=== PATIENT | female | born 1945 | race Caucasian/White ===

== ENCOUNTER 2022-05-05 23:00 | Observation (INO) | payer MEDICARE, SELFPAY ==
[2022-05-05 23:01] VITALS: TEMP 37.1; BMI 24.6
--- NOTE | 2022-05-05 23:01 | RAD_ITS ---
STUDY: X-RAY CHEST REASON FOR EXAM: Female, 77 years old. Neuro deficit, acute, stroke suspected TECHNIQUE: AP portable. 11:45 PM. COMPARISON: None. FINDINGS: LUNGS: No consolidation. Small left pleural effusion versus pleural thickening. No pneumothorax. MEDIASTINUM: Aorta tortuous and atherosclerotic. CARDIAC SILHOUETTE: Not enlarged. Sternal wires. BONES AND SOFT TISSUES: No acute abnormalities. RAD/Chest 1 View IMPRESSION: Small left pleural effusion versus pleural thickening. Electronically Signed: Paula Parikh MD at 0:21 EDT ,
--- NOTE | 2022-05-05 23:01 | CT_ITS ---
We are attempting to reach an attending provider to discuss findings. An addendum with communication details will be sent when the communication is complete. STUDY: CT HEAD W/O CONTRAST INJECTION REASON FOR EXAM: Female, 77 years old. Neuro deficit, acute, stroke suspected RADIATION DOSAGE (If Supplied By Facility): CTDIvol = ( ) mGy, DLP = ( ) mGycm TECHNIQUE: Transaxial CT imaging of the brain was performed without administration of intravenous contrast material. Individualized dose optimization techniques were used for this CT. COMPARISON: No relevant priors. FINDINGS: BRAIN: No acute bleed. No edema. Decreased attenuation in the periventricular white matter bilaterally. Kaur-white matter differentiation is maintained. Arterial calcifications. VENTRICLES AND SULCI: The ventricles are not dilated. The sulci are prominent. EXTRA-AXIAL: No hemorrhage, fluid collection, or mass. CALVARIUM / SKULL BASE: Unremarkable. FACE/SINUSES: Unremarkable. SOFT TISSUES: Unremarkable. CT/STROKE Brain/Head without Cont IMPRESSION: No acute abnormality on noncontrast CT. CT angiogram and/or MRI may be helpful to evaluate for acute infarct as clinically indicated. Mild chronic microvascular ischemic disease. Electronically Signed: Paula Parikh MD at 23:19 EDT ,
[2022-05-05 23:04] VITALS: BMI 45.3
[2022-05-05 23:07] VITALS: BMI 20.3
[2022-05-05 23:10] VITALS: BP 170/63; PULSE 68; RESP 18; TEMP 36.2; O2SAT 91
[2022-05-05 23:13] VITALS: O2SAT 92
[2022-05-05 23:24] VITALS: BP 165/66; PULSE 64; RESP 18; O2SAT 97
[2022-05-05 23:31] LABS: Bedside Glucose 129 mg/dL (74-106)
--- NOTE | 2022-05-05 23:35 | EDS_ITS ---
HPI History of Present Illness Chief Complaint: Neuro S/Sx Narrative Narrative: Patient has a history of Busby, she is in town for her sister's , she has not taken her ammonia as she normally has so she can make it through the tomorrow morning at 10:00. She was found unresponsive by her son who called paramedics, per paramedics they thought they may have seen a right-sided facial droop and a stroke team was called. There is no witness to what happened and last known well time was 1 to 2 hours ago. Patient is somewhat lethargic and confused I cannot get a history from her or review of systems. The daughter whom she lives with in [place] is at the bedside now and I am getting most of the history. [facility] Medical History (Updated 05/06/22 @ 00:[address] Jose Doran MD) Diabetes mellitus Nonalcoholic steatohepatitis (BUSBY) Home Medications atorvastatin 40 mg tablet 40 mg PO DAILY 05/05/22 [History Last Taken Unknown] citalopram 20 mg tablet 10 mg PO DAILY 05/05/22 [History Last Taken Unknown] furosemide 40 mg tablet 40 mg PO DAILY 05/05/22 [History Last Taken Unknown] lactulose 20 gram/30 mL oral solution 20 ml PO BID 05/05/22 [History Last Taken Unknown] metformin 500 mg tablet,extended release 24 hr 500 mg PO BID 05/05/22 [History Last Taken Unknown] metoprolol tartrate 25 mg tablet 25 mg PO BID 05/05/22 [History Last Taken Unknown] pantoprazole 40 mg tablet,delayed release 40 mg PO DAILY 05/05/22 [History Last Taken Unknown] prednisone 10 mg tablet 10 mg PO BID 05/05/22 [History Last Taken Unknown] spironolactone 25 mg tablet 25 mg PO DAILY 05/05/22 [History Last Taken Unknown] Allergy/AdvReac Type Severity Reaction Status Date / Time No Known Allergies Allergy Verified 05/05/22 23:21 Social History Smoking Status: Former smoker ROS ROS ED Review of Systems ROS Unobtainable: due to mental condition and due to mental status EXAM Physical Exam Narrative Exam Narrative: Physical exam General: Patient is lethargic she does respond she does follow most commands but she will tell me her name and nothing more. Head: Normocephalic, Atraumatic Eyes: Conjunctiva not pale, I do not appreciate significant scleral icterus ENT: Somewhat dry mucous membranes Neck: Supple, Nontender, No lymphadenopathy Cardiovascular: Regular rate, Regular rhythm Respiratory: No distress, coarse bilateral breath sounds Abdomen: Soft, Nontender, Nondistended Back: Nontender, Normal Inspection. Extremities: Nontender, No edema Skin: Normal color, No rash Neurological: Lethargic but wakes up. No focal deficits. Const Vital Signs: 05/05/22 23:01 05/05/22 23:10 05/05/22 23:13 Temperature 98.8 F 97.2 F L Temperature Source Temporal Temporal Pulse Rate 68 Respiratory Rate 18 Blood Pressure 170/63 H Blood Pressure Mean 98 Pulse Ox 91 92 Oxygen Delivery Method Room Air Nasal Cannula Oxygen Flow Rate (L/min) 2 05/05/22 23:24 Temperature Temperature Source Pulse Rate 64 Respiratory Rate 18 Blood Pressure 165/66 H Blood Pressure Mean 99 Pulse Ox 97 Oxygen Delivery Method Nasal Cannula Oxygen Flow Rate (L/min) 2 MDM MDM MDM Narrative Medical decision making narrative: At this time I do not believe tPA is needed, stroke neurologist agrees, her symptoms are likely secondary to hyperammonemia, there could be an underlying seizure also. There is no focal deficit and oriented H is 3 but it is all secondary to confusion. We will admit her for further stroke work-up. She does have some hyperammonemia which I will treat, however she is recovering relatively quick so she may have had a seizure. Keppra was given IV. We will monitor. Lab Data Labs: Laboratory Results - last 24 hr 05/05/22 05/05/22 05/05/22 23:13 23:20 23:20 WBC 7.0 RBC 3.21 L Hgb 10.9 L Hct 33.2 L MCV 103.4 H MCH 34.0 H MCHC 32.8 RDW Std Deviation 63.3 H RDW Coeff of Saroj 16.6 H Plt Count 155 MPV 9.7 Immature Gran % (Auto) 0.300 Neut % (Auto) 50.0 Lymph % (Auto) 35.1 Cross % (Auto) 11.1 H Eos % (Auto) 3.2 Baso % (Auto) 0.3 Absolute Neuts (auto) 3.5 Absolute Lymphs (auto) 2.44 Nucleated RBC % 0 PT 14.1 INR 1.1 APTT 27.2 Sodium Potassium Chloride Carbon Dioxide Anion Gap BUN Creatinine Estim Creat Clear Calc Est GFR (MDRD) Af Amer Est GFR (MDRD) Non-Af BUN/Creatinine Ratio Glucose Calcium Ammonia Troponin I High Sens POC Glucose 129 H 05/05/22 05/05/22 23:20 23:20 WBC RBC Hgb Hct MCV MCH MCHC RDW Std Deviation RDW Coeff of Saroj Plt Count MPV Immature Gran % (Auto) Neut % (Auto) Lymph % (Auto) Cross % (Auto) Eos % (Auto) Baso % (Auto) Absolute Neuts (auto) Absolute Lymphs (auto) Nucleated RBC % PT INR APTT Sodium 141 Potassium 3.8 Chloride 104 Carbon Dioxide 30.0 Anion Gap 7 BUN 26 H Creatinine 0.98 Estim Creat Clear Calc 42.07 Est GFR (MDRD) Af Amer 70 Est GFR (MDRD) Non-Af 58 L BUN/Creatinine Ratio 26.4 H Glucose 138 H Calcium 10.4 H Ammonia 84.0 H Troponin I High Sens 28 POC Glucose Radiography Diagnostic Testing: Clinical Impression(s) from Imaging Studies Brain CT 05/05/22 23:01 IMPRESSION: No acute abnormality on noncontrast CT. CT angiogram and/or MRI may be helpful to evaluate for acute infarct as clinically indicated. Mild chronic microvascular ischemic disease. Electronically Signed: Paula Parikh MD at 23:19 EDT Reading Location ID and State: [address] [place] [address] Tel , Service support , ADDENDUM: 05/05/22 4517 IMPRESSION: No acute abnormality on noncontrast CT. CT angiogram and/or MRI may be helpful to evaluate for acute infarct as clinically indicated. Mild chronic microvascular ischemic disease. N.B. : The above Results were Read Back by Paula Parikh MD to jose doran MD, and understanding confirmed on 05/05/2022 23:20:21 (ET). 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 Prescriptions: No Action furosemide 40 mg tablet 40 mg PO DAILY Label Comments: TAKE 1/2 TO 1 (ONE-HALF TO ONE) TABLET BY MOUTH ONCE DAILY NEEDED atorvastatin 40 mg tablet 40 mg PO DAILY Label Comments: TAKE 1 TABLET BY MOUTH ONCE DAILY prednisone 10 mg tablet 10 mg PO BID Label Comments: TAKE 1 TABLET BY MOUTH TWICE DAILY spironolactone 25 mg tablet 25 mg PO DAILY Label Comments: TAKE 1 TABLET BY MOUTH ONCE DAILY citalopram 20 mg tablet 10 mg PO DAILY Label Comments: TAKE 1/2 (ONE-HALF) TABLET BY MOUTH ONCE DAILY pantoprazole 40 mg tablet,delayed release (DR/EC) 40 mg PO DAILY Label Comments: TAKE 1 TABLET BY MOUTH ONCE DAILY metformin 500 mg tablet extended release 24 hr 500 mg PO BID Label Comments: TAKE 1 TABLET BY MOUTH TWICE DAILY BEFORE MEAL(S) metoprolol tartrate 25 mg tablet 25 mg PO BID Label Comments: TAKE 1 TABLET BY MOUTH TWICE DAILY lactulose 20 gram/30 mL Solution 20 ml PO BID Primary Care Provider: Rama De La Garza Referrals: Rama De La Garza MD [Primary Care Provider] - Disposition Disposition: Acute Care Hospital [facility] NIHSS NIHSS 1a. Level of Consciousness: Not alert; 1b. LOC Questions: Answers neither question correctly. 1c. LOC Commands: Performs both tasks correctly. 2. Best Gaze: Normal 3. Visual: No visual loss 4. Facial Palsy: Normal symmetrical movements 5a. Left Arm: No drift; arm holds 90 (or 45) degrees for full 10 seconds 5b. Right Arm: No drift; arm holds 90 (or 45) degrees for full 10 seconds 6a. Left Leg: No drift; leg holds 30-degree position for full 5 seconds 6b. Right Leg: No drift; leg holds 30-degree position for full 5 seconds 7. Limb Ataxia: Absent 8. Sensory: Normal; no sensory loss 9. Best Language: No aphasia; normal 10. Dysarthria: Normal 11. Extinction and Inattention: No abnormality Total: 3 Stroke Questions Stroke Team Activated: Yes a.Reviewed Inclusion/Exclusion criteria: Yes Was Patient considered for Endovascular Intervention?: No IV TPA Administered: No No contraindications for IV Alteplase (t-PA) administration.: Yes Risks, Benefits, Alternatives Discussed: Yes Not given: Patient refusal: No (At this time between the stroke neurologist and myself we do not feel tPA ) Critical care time (excluding procedures): 30 minutes
[2022-05-05 23:36] LABS: Absolute Lymphocyte Count 2.44 X10^3/uL (0.83-4.51); Absolute Neutrophil Count 3.5 X10^3/uL (2.0-7.7); Basophil# 0.02 X10^3/uL; Basophil% 0.3 % (0-1); Eosinophil# 0.22 X10^3/uL; Eosinophils% 3.2 % (0-5); Hematocrit 33.2 % (37-47); Hemoglobin 10.9 g/dL (12.0-15.0); Lymphocyte # 2.44 X10^3/ul (0.83-4.51); Lymphocyte % 35.1 % (19-41); Mean Corp Hgb Conc 32.8 g/dL (32-36); Mean Corpuscular Volume 103.4 fL (81-99); Mean Platelet Vol. 9.7 fl (6.2-12.0); Monocyte# 0.77 X10^3/uL; Monocyte% 11.1 % (0-10); NRBC Flagged by Analyzer 0 % (0-5); Neutrophil # 3.48 X10^3/uL (2.7-7.7); Platelet Count 155 K/mm3 (150-450); RBC Distribution Width CV 16.6 % (11.6-14.6); RBC Distribution Width SD 63.3 fl (35.1-43.9); Red Blood Count 3.21 M/mm3 (4.2-5.4)
[2022-05-05 23:44] LABS: International Normalized Ratio 1.1; Prothrombin Time (Protime)PT. 14.1 SECONDS (11.7-14.9)
[2022-05-05 23:45] LABS: Partial Thromboplast Time 27.2 Seconds (24.1-36.2)
--- NOTE | 2022-05-05 23:46 | ED.RN ---
PER PT DAUGHTER AND CAREGIVER REPORTS THAT PT WAS LAST AT HER BASELINE AT 1930. REPORTS SON FOUND T IN BED WITH ALTERED LC AT AROUND 2200. DAUGHTER ALSO REPORTS THAT SHE HAS BEEN LIMITING HER LACTULOSE INTAKE IN ORDER TO GET THROUGH [facility].
[2022-05-05 23:53] LABS: Anion Gap 7 (5-15); BUN 26 mg/dL (7-18); BUN/Creat Ratio 26.4 RATIO (10-20); Calcium,Total 10.4 mg/dL (8.5-10.1); Chloride 104 mmol/L (98-107); Creatinine, Serum 0.98 mg/dL (0.55-1.02); EST Glomerular Filtration Rate 58 mL/min (>60); Est Glom Filt Rate - Afr Amer 70 mL/min (>60); Estimated Creatinine Clearance 42.07 ml/min; Glucose 138 mg/dL (74-106); Potassium 3.8 mmol/L (3.5-5.1); Sodium Level 141 mmol/L (136-145); Troponin-I HS 28 pg/mL (3.0-54.0)
[2022-05-06] VITALS (17 sets, daily range): BP systolic 138–160; BP diastolic 57–61; PULSE 60–77; RESP 16–19; TEMP 36.5–37; O2SAT 94–99
--- NOTE | 2022-05-06 00:05 | HP.PCM.HOS_ITS ---
HPI - General General Date of Admission: 05/06/22 Date of Service: 05/06/22 Chief Complaint: Toxic/metabolic encephalopathy HPI Narrative ELOY LOPEZ, is a 77 F who presented to the emergency department at [facility] on 05/05/2022 with a chief complaint of acute mental status change. The patient lives part-time with her daughter in [place] and part- time with her son in [facility]. She had been currently living with her daughter in [place] and was visiting the area as her sister had recently . They had gone to the viewing this afternoon and she had gone back to her son's house. Her son evidently found her in the bedroom unresponsive and foaming at the mouth. At that time the son called EMS and they instructed him to begin chest compressions however a pulse was never assessed for her and she had a p ulse upon arrival of the EMS. All history was obtained by her daughter. Patient has a history of Busby cirrhosis. Her daughter reports that she recently had her ammonia checked at home in [place] and it was 160 and she was relatively at baseline with regards to her mental status. They had decreased her lactulose intake so that she would not have bowel issues during the tomorrow. She took 15 mg today and only 20 mg yesterday. The daughter does report that it is difficult to get it in her on a regular basis that she does not like to take it. Family does report that she respond somewhat slowly at baseline however is typically appropriate and alert and oriented x3. Upon arrival to the emergency department her temperature was 98.8, blood pressure was 170/63, heart rate 68, respiratory rate 18, pulse ox was 91% on room air. Pulse ox was reassessed when she was more awake and found to be 97% on room air. We have no baseline laboratory data for comparison. Her CBC showed a hemoglobin of 10.9 but was otherwise unremarkable. Is unclear if this is acute or chronic however I do suspect with her history that this is likely chronic. Her coags were normal. Her basic metabolic profile was overall unimpressive other than the slightly elevated BUN at 26 with a serum creatinine of 0.89 and a blood glucose of 138. Her calcium was also slightly elevated at 10.4. Initial troponin was 28 and her ammonia was found to be 84. CT of the head was unremarkable for any acute findings and showed only mild chronic microvascular ischemic changes. Her chest x-ray showed a small left pleural effusion with some pleural thickening but was otherwise unremarkable. And a CTA of her head was pending on admission. Upon my evaluation she was fairly somnolent however it was 1:00 in the morning. She would awaken to verbal and tactile stimuli but was not appropriate with her orientation at that time. [facility] Medical History (Updated 05/06/22 @ 01:[address] 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 Home Medications atorvastatin 40 mg tablet 40 mg PO DAILY 05/05/22 [History Last Taken Unknown] citalopram 20 mg tablet 10 mg PO DAILY 05/05/22 [History Last Taken Unknown] furosemide 40 mg tablet 40 mg PO DAILY 05/05/22 [History Last Taken Unknown] lactulose 20 gram/30 mL oral solution 20 ml PO BID 05/05/22 [History Last Taken Unknown] metformin 500 mg tablet,extended release 24 hr 500 mg PO BID 05/05/22 [History Last Taken Unknown] metoprolol tartrate 25 mg tablet 25 mg PO BID 05/05/22 [History Last Taken Unknown] pantoprazole 40 mg tablet,delayed release 40 mg PO DAILY 05/05/22 [History Last Taken Unknown] prednisone 10 mg tablet 10 mg PO BID 05/05/22 [History Last Taken Unknown] spironolactone 25 mg tablet 25 mg PO DAILY 05/05/22 [History Last Taken Unknown] Allergy/AdvReac Type Severity Reaction Status Date / Time No Known Allergies Allergy Verified 05/05/22 23:21 Family History (Updated 05/06/22 @ 01:[address] Monse Marquez DO) Other Diabetes Hyperlipidemia Hypertension Surgical History (Updated 05/06/22 @ 01:[address] Monse Marquez DO) S/P cervical spinal fusion Social History (Updated 05/06/22 @ 01:[address] Monse Marquez DO) household members: children housing: house Smoking Status: Former smoker how long ago did patient quit smoking: Quit in 1986 alcohol intake: never substance use type: does not use ROS Review of Systems ROS Unobtainable: due to encephalopathy Vital Signs Vital Signs Vital Signs: 05/05/22 23:01 05/05/22 23:10 05/05/22 23:13 Temperature 98.8 F 97.2 F L Temperature Source Temporal Temporal Pulse Rate 68 Respiratory Rate 18 Blood Pressure 170/63 H Blood Pressure Mean 98 Pulse Ox 91 92 Oxygen Delivery Method Room Air Nasal Cannula Oxygen Flow Rate (L/min) 2 05/05/22 23:24 Temperature Temperature Source Pulse Rate 64 Respiratory Rate 18 Blood Pressure 165/66 H Blood Pressure Mean 99 Pulse Ox 97 Oxygen Delivery Method Nasal Cannula Oxygen Flow Rate (L/min) 2 Weight Weight: 57.254 kg Body Mass Index (BMI) 20.3 Physical Exam Const well nourished Constitutional Narrative: Somnolent, elderly, white female lying in bed, does arouse to verbal and tactile stimuli however has difficulty answering questions appropriately, family at bedside, nursing at bedside, patient appears nontoxic, has some difficulty following commands consistently General Appearance: cooperative HEENT normocephalic, head/scalp atraumatic, hearing grossly normal bilaterally and moist oral mucous membranes HEENT Narrative: Dentition is fair, Mallampati is 2, no thrush Eyes PERRL, EOMs intact bilaterally and conjunctivae normal Eyes Narrative: No scleral icterus Neck no lymphadenopathy and supple Neck Narrative: Trachea midline, no thyroid enlargement, well-healed scar noted from anterior cervical fusion Resp normal respiratory effort, no retractions, no use of accessory muscles and clear to auscultation bilaterally Auscultation: Negative for crackles, rales, rhonchi or wheezes Cardio regular rate, regular rhythm, S1 normal heart sound, S2 normal heart sound, no rub, no gallops and no clicks Cardio Narrative: 3 out of 6 systolic murmur GI normal to inspection, nondistended, normoactive bowel sounds, soft to palpation, non-tender and non-distended Extremity no clubbing, cyanosis or edema Extremity Narrative: 2+ pedal pulses Skin no wounds, skin turgor normal, no jaundice, no petechiae and no mottling Skin Narrative: Few scattered ecchymosis Neuro CN's II-XII intact bilaterally, moves all extremities and no focal motor deficits Neuro Narrative: Awakens easily to verbal and tactile stimuli, oriented only to self, generalized weakness but no focal deficits, reflexes 3+ upper and lower extremities, no noted asterixis Psych Psych Narrative: Difficult to assess with mental status Results Lab / Micro Data Attestation: I reviewed the patient's lab results. Result Diagrams: 05/05/22 23:20 05/05/22 23:20 Labs: Laboratory Results - last 24 hr 05/05/22 23:13: POC Glucose 129 H 05/05/22 23:20: WBC 7.0, RBC 3.21 L, Hgb 10.9 L, Hct 33.2 L, MCV 103.4 H, MCH 34.0 H, MCHC 32.8, RDW Std Deviation 63.3 H, RDW Coeff of Saroj 16.6 H, Plt Count 155, MPV 9.7, Immature Gran % (Auto) 0.300, Neut % (Auto) 50.0, Lymph % (Auto) 35.1, [place] % (Auto) 11.1 H, Eos % (Auto) 3.2, Baso % (Auto) 0.3, Absolute Neuts (auto) 3.5, Absolute Lymphs (auto) 2.44, Nucleated RBC % 0 05/05/22 23:20: PT 14.1, INR 1.1, APTT 27.2 05/05/22 23:20: Sodium 141, Potassium 3.8, Chloride 104, Carbon Dioxide 30.0, An ion Gap 7, BUN 26 H, Creatinine 0.98, Estim Creat Clear Calc 42.07, Est GFR ( MDRD) Af Amer 70, Est GFR (MDRD) Non-Af 58 L, BUN/Creatinine Ratio 26.4 H, Glucose 138 H, Calcium 10.4 H, Troponin I High Sens 28 05/05/22 23:20: Ammonia 84.0 H Radiology Impression Brain CT 05/05/22 23:01 IMPRESSION: No acute abnormality on noncontrast CT. CT angiogram and/or MRI may be helpful to evaluate for acute infarct as clinically indicated. Mild chronic microvascular ischemic disease. Electronically Signed: Paula Parikh MD at 23:19 EDT , ADDENDUM: 05/05/22 9580 IMPRESSION: No acute abnormality on noncontrast CT. CT angiogram and/or MRI may be helpful to evaluate for acute infarct as clinically indicated. Mild chronic microvascular ischemic disease. N.B. : The above Results were Read Back by Paula Parikh MD to jonnathan doran MD, and understanding confirmed on 05/05/2022 23:20:21 (ET). Electronically Signed: Paula Parikh MD at 23:19 EDT , Assessment & Plan Assessment/Plan (1) Hyperammonemia: (2) Encephalopathy: (3) Macrocytic anemia: PLAN: Plan Toxic/metabolic encephalopathy -Etiology is unclear at this point -Seizure is of concern -Telestroke evaluation in the emergency department and recommended EEG and MRI for imaging in the morning -Keppra loaded in the emergency department with 1 g IV -As needed Ativan for seizure activity -Seizure precautions -Check a.m. EEG -Check a.m. MRI -Check a.m. echocardiogram -Listed stroke as highly doubtful -Ammonia level elevated however lower than typical and mental status is altered compared to baseline so I doubt this is the etiology -Continue home lactulose rectally until able to pass speech therapy -PT/OT/speech therapy consultations -May need further neurology evaluation depending on above results Hyperammonemia -This is chronic -From her history her current levels are lower than her baseline so I doubt this is the etiology for her above confusion -Continue home lactulose rectally until she is able to pass speech eval BUSBY cirrhosis -New Lasix IV 20 mg daily -Continue home lactulose NC -Continue home prednisone IV 20 mg daily -Home Aldactone on hold Hyperlipidemia -Continue Lipitor once patient is more awake and able to take p.o. DM-2 -Sliding scale every 6 hours until p.o. intake is possible -Accu-Cheks -Hold metformin GERD -Continue PPI but convert to IV 40 mg daily Depression -Hold home citalopram DVT prophylaxis -Lovenox subcu daily -SCDs CODE STATUS -DNR CCA without intubation per discussion with her family prior to admission the emergency department Charges/Coding Visit Charges OBSV E&M: 72490 Initial observation care L3
--- NOTE | 2022-05-06 00:11 | CT_ITS ---
EXAM: CTA Head and Neck W/ Contrast Injection (and W/O Contrast Images if performed) HISTORY: ms change TECHNIQUE: CTA Head and Neck W/ Contrast Injection (and W/O Contrast Images if performed) Noncontrast axial images were obtained of the brain and neck. NASCET criteria using the distal ICAs for comparison were used for evaluation of stenoses. 3D reconstructions were reviewed. A radiation dose optimization technique was used for this scan. COMPARISON: CT brain 05/05/2022 LIMITATIONS: None. CAROTID ARTERIES: Normal. ANTERIOR CEREBRAL ARTERIES: Normal. MIDDLE CEREBRAL ARTERIES: Normal. POSTERIOR CEREBRAL ARTERIES: origin of the left [employer]ILOR. BASILAR ARTERY: Normal. VERTEBRAL ARTERIES: Normal. VENOUS STRUCTURES: Normal. OTHER: None. AORTIC ARCH: Normal. CAROTID ARTERIES: Moderate stenosis in the proximal bilateral internal carotid arteries. VERTEBRAL ARTERIES: Normal. OTHER ARTERIES: Normal. VENOUS STRUCTURES: Normal. BONES/SOFT TISSUES: Multilevel degenerative changes of the visualized spine with severe spinal canal narrowing compressing the cord due to disc bulge and ligamentous flavum hypertrophy. No acute osseous abnormality.. OTHER: Hypoattenuating thyroid nodules, too small to characterize.. CT/CTA Head AND Neck W/ Contrast IMPRESSION: 1. Moderate stenosis in the bilateral proximal internal carotid arteries. 2. No aneurysm or dissection in the head and neck. 3. Multilevel degenerative changes with severe spinal canal narrowing compressing the cord. Findings are likely chronic, however if there are focal neurologic deficits consider further characterization with MRI of the cervical spine. Electronically Signed: Julio Mathews MD at 1:16 EDT ,
--- NOTE | 2022-05-06 00:13 | MRI_ITS ---
STUDY: MRI BRAIN WITHOUT CONTRAST REASON FOR EXAM: Female, 77 years old. Seizure, ACUTE MENTAL STATUS CHANGE, HX MICHAUD TECHNIQUE: Standardized multiplanar fat and water weighted pulse sequences were obtained. COMPARISON: None. FINDINGS: Normal size of the ventricles and extra-axial spaces for the patient''s age. Normal white matter tracts of the supratentorial brain. Normal bilateral basal ganglia. Normal thalami. There is no extra-axial fluid accumulation. Normal flow voids within the major intracranial circulation suggesting patency by spin echo criteria. Normal sella turcica, pituitary gland, infundibular stalk, optic chiasm and hypothalamus. Normal tectal plate and pineal gland. Normal midbrain, wilma and medulla. Normal cerebellum. Normal basal cisterns. Normal bilateral temporal bones. Normal bilateral internal auditory canals. No demonstrated orbital abnormality, within the constraints of a routine brain study. Normal visualized paranasal sinuses. Normal calvarium and skull base. Normal visualized soft tissue structures. Suspicious pronounced spinal stenosis of the cervical spine at C3-C4 and C5-C6 disc space levels. MRI/Brain without Contrast IMPRESSION: 1. Normal unenhanced MRI of the brain. 2. Suspicious pronounced central canal stenosis at C3-C4 and C5-C6 disc space levels. Electronically Signed: Callum Wright MD at 12:47 EDT ,
[2022-05-06] MEDS: levETIRAcetam IV 1,000 MG/100 ML BAG 400 MG IV (00:16)
[2022-05-06] MEDS: Lactulose 20 GM/30 ML UDC 200 GM RC ×2 (01:00→06:00)
--- NOTE | 2022-05-06 02:43 | ECHOD_ITS ---
Reason For Study: SYNCOPE/NEAR SYNCOPE Procedure This was a 2D Doppler, Color Flow transthoracic echocardiogram. Exam performed portable in patient room. Left Ventricle Normal size and thickness. The left ventricular ejection fraction is 55 %. Diastolic function is indeterminate. Right Ventricle Normal right ventricle. Atria The left atrium is severely enlarged. Normal right atrium. Mitral Valve Mild diffuse mitral valve thickening. Mild (1+) mitral valve insufficiency. Tricuspid Valve Normal tricuspid valve. Aortic Valve Aortic sclerosis, no stenosis. Pulmonic Valve The pulmonic valve is not well visualized. Mild (1+) pulmonic valve insufficiency. Great Vessels Normal sized aortic root. Pericardium/Pleural Small pericardial effusion. MMode/2D Measurements & Calculations LVIDd: 4.8 cm IVSd: 1.1 cm Ao root diam: 3.0 cm LVIDs: 3.3 cm LVPWd: 0.88 cm RVDd: 3.3 cm FS: 30.2 % LAV(MOD-bp): 50.8 ml LVAd ap4: 33.5 cm2 SV(MOD-sp4): 58.9 ml LAV(MOD-bp) Indexed: 31.6 ml/m2 LVLd ap4: 8.3 cm LAV(MOD-sp2): 47.9 ml EDV(MOD-sp4): 110.4 ml LAV(MOD-sp4): 50.9 ml EDV(sp4-el): 114.7 ml LVAs ap4: 20.8 cm2 LVLs ap4: 7.1 cm ESV(MOD-sp4): 51.5 ml ESV(sp4-el): 51.1 ml EF(MOD-sp4): 53.3 % EF(sp4-el): 55.4 % SV(sp4-el): 63.6 ml LA A4 area: 19.1 cm2 LA dimension(2D): 4.4 cm RA A4 area: 15.8 cm2 Time Measurements MV dec time: 0.21 sec Doppler Measurements & Calculations MV E max filiberto: 103.2 cm/sec Lat Peak E' Filiberto: 6.9 cm/sec Med Peak E' Filiberto: 5.6 cm/sec MV A max filiberto: 120.6 cm/sec E/E' lat: 14.9 E/E' med: 18.3 MV E/A: 0.86 Ao V2 max: 173.6 cm/sec LV V1 max: 120.6 cm/sec MV dec slope: 482.5 cm/sec2 Ao max P.1 mmHg LV V1 max P.8 mmHg PA V2 max: 127.2 cm/sec ECHO/Echo Complete Interpretation Summary The left ventricular ejection fraction is 55 %. Diastolic function is indeterminate. The left atrium is severely enlarged. Mild (1+) mitral valve insufficiency. Aortic sclerosis, no stenosis. Mild (1+) pulmonic valve insufficiency. Small pericardial effusion. Ordering Physician: Monse Marquez Referring Physician: BHARGAV RODRÍGUEZ Performed By: Holly Newberry RDCS
[2022-05-06 03:21] LABS: Bedside Glucose 101 mg/dL (74-106)
[2022-05-06] MEDS: 0.9% Saline Lock 10 ML Syringe IV (05:54)
[2022-05-06] MEDS: Metoprolol Tartrate 5 MG/5 ML Vial 2.5 MG IV ×2 (05:54→13:27)
[2022-05-06 06:35] LABS: Absolute Lymphocyte Count 2.11 X10^3/uL (0.83-4.51); Absolute Neutrophil Count 2.7 X10^3/uL (2.0-7.7); Basophil# 0.04 X10^3/uL; Basophil% 0.7 % (0-1); Eosinophil# 0.21 X10^3/uL; Eosinophils% 3.8 % (0-5); Hematocrit 29.7 % (37-47); Hemoglobin 9.9 g/dL (12.0-15.0); Lymphocyte # 2.11 X10^3/ul (0.83-4.51); Lymphocyte % 37.7 % (19-41); Mean Corp Hgb Conc 33.3 g/dL (32-36); Mean Corpuscular Hgb 34.3 pg (27.0-32.0); Mean Corpuscular Volume 102.8 fL (81-99); Monocyte# 0.58 X10^3/uL; Monocyte% 10.4 % (0-10); NRBC Flagged by Analyzer 0 % (0-5); Neutrophil # 2.65 X10^3/uL (2.7-7.7); Neutrophil % 47.2 % (47-70); Platelet Count 134 K/mm3 (150-450); RBC Distribution Width CV 16.7 % (11.6-14.6); RBC Distribution Width SD 63.6 fl (35.1-43.9); Red Blood Count 2.89 M/mm3 (4.2-5.4); White Blood Count 5.6 K/mm3 (4.4-11.0)
[2022-05-06 06:35] LABS: Bedside Glucose 73 mg/dL (74-106)
[2022-05-06 07:16] LABS: AST(SGOT) 41 U/L (15-37); Alanine Aminotransfer ALT/SGPT 62 U/L (13-56); Albumin, Serum 2.9 g/dL (3.2-5.0); Alkaline Phosphatase 69 U/L (45-117); Anion Gap 9 (5-15); BUN 23 mg/dL (7-18); BUN/Creat Ratio 25.7 RATIO (10-20); Calcium,Total 10.1 mg/dL (8.5-10.1); Chloride 107 mmol/L (98-107); Creatinine, Serum 0.89 mg/dL (0.55-1.02); EST Glomerular Filtration Rate 65 mL/min (>60); Est Glom Filt Rate - Afr Amer 78 mL/min (>60); Globulin 2.9 g/dL (2.2-4.2); Glucose 84 mg/dL (74-106); Magnesium 2.2 mg/dL (1.6-2.6); Phosphorus 3.2 mg/dL (2.5-4.9); Potassium 3.8 mmol/L (3.5-5.1); Protein, Total 5.8 g/dL (6.4-8.2); Sodium Level 142 mmol/L (136-145); Thyroid Stim Hormone (TSH) 1.11 uIU/mL (0.358-3.74)
--- NOTE | 2022-05-06 07:19 | PCM.PN.HOSP ---
Subjective Subjective Follow-up for altered mental status/acute encephalopathy History of mass. Still confused disoriented. Objective Data Objective Data Vital Signs: Vital Signs Temp Pulse Resp BP Pulse Ox O2 Del Method O2 Flow Rate 97.9 F 64 18 151/60 H 98 Nasal Cannula 2 05/06/22 03:00 05/06/22 05:54 05/06/22 05:51 05/06/22 05:54 05/06/22 05:51 05/06/22 05:51 05/06/22 05:51 Oxygen Flow Rate (L/min) 2 Oxygen Delivery Method Nasal Cannula Weight: 120 lb 2.431 oz Body Mass Index (BMI) 20.3 Intake & Output: Intake and Output for Last 24 Hours 05/04/22 05/05/22 05/06/22 23:59 23:59 23:59 Intake Total 100 / 100 Balance 100 / 100 Lab / Micro Data Result Diagrams: 05/06/22 05:41 05/06/22 05:41 Labs: Laboratory Results - last 24 hr 05/05/22 23:13: POC Glucose 129 H 05/05/22 23:20: WBC 7.0, RBC 3.21 L, Hgb 10.9 L, Hct 33.2 L, MCV 103.4 H, MCH 34.0 H, MCHC 32.8, RDW Std Deviation 63.3 H, RDW Coeff of Saroj 16.6 H, Plt Count 155, MPV 9.7, Immature Gran % (Auto) 0.300, Neut % (Auto) 50.0, Lymph % (Auto) 35.1, [place] % (Auto) 11.1 H, Eos % (Auto) 3.2, Baso % (Auto) 0.3, Absolute Neuts (auto) 3.5, Absolute Lymphs (auto) 2.44, Nucleated RBC % 0 05/05/22 23:20: PT 14.1, INR 1.1, APTT 27.2 05/05/22 23:20: Sodium 141, Potassium 3.8, Chloride 104, Carbon Dioxide 30.0, Anion Gap 7, BUN 26 H, Creatinine 0.98, Estim Creat Clear Calc 42.07, Est GFR (MDRD) Af Amer 70, Est GFR (MDRD) Non-Af 58 L, BUN/Creatinine Ratio 26.4 H, Glucose 138 H, Calcium 10.4 H, Troponin I High Sens 28 05/05/22 23:20: Ammonia 84.0 H 05/06/22 02:59: POC Glucose 101 05/06/22 05:41: WBC 5.6, RBC 2.89 L, Hgb 9.9 L, Hct 29.7 L, MCV 102.8 H, MCH 34.3 H, MCHC 33.3, RDW Std Deviation 63.6 H, RDW Coeff of Saroj 16.7 H, Plt Count 134 L, MPV 10.0, Immature Gran % (Auto) 0.200, Neut % (Auto) 47.2, Lymph % (Auto) 37.7, [place] % (Auto) 10.4 H, Eos % (Auto) 3.8, Baso % (Auto) 0.7, Absolute Neuts (auto) 2.7, Absolute Lymphs (auto) 2.11, Nucleated RBC % 0 05/06/22 05:41: Sodium 142, Potassium 3.8, Chloride 107, Carbon Dioxide 26.0, Anion Gap 9, BUN 23 H, Creatinine 0.89, Estim Creat Clear Calc 44.10, Est GFR (MDRD) Af Amer 78, Est GFR (MDRD) Non-Af 65, BUN/Creatinine Ratio 25.7 H, Glucose 84, Calcium 10.1, Phosphorus 3.2, Magnesium 2.2, Total Bilirubin 1.00, AST 41 H, ALT 62 H, Alkaline Phosphatase 69, Total Protein 5.8 L, Albumin 2.9 L, Globulin 2.9, Albumin/Globulin Ratio 1.0, TSH 1.11 05/06/22 06:08: POC Glucose 73 L Radiography Diagnostic Testing: Radiology Impression Brain CT 05/05/22 23:01 IMPRESSION: No acute abnormality on noncontrast CT. CT angiogram and/or MRI may be helpful to evaluate for acute infarct as clinically indicated. Mild chronic microvascular ischemic disease. Chest X-Ray 05/05/22 23:01 IMPRESSION: Small left pleural effusion versus pleural thickening. Head/Neck CTA 05/06/22 00:11 IMPRESSION: 1. Moderate stenosis in the bilateral proximal internal carotid arteries. 2. No aneurysm or dissection in the head and neck. 3. Multilevel degenerative changes with severe spinal canal narrowing compressing the cord. Findings are likely chronic, however if there are focal neurologic deficits consider further characterization with MRI of the cervical spine. Physical Exam Narrative Seen and examined. Patient very sleepy lethargic and I had to wake her up. She was confused and disoriented. Physical exam General: Confused, disoriented x4. HEENT: No C-spine tenderness. Atraumatic, PERRLA, EOMI, Normocephalic Oral: Oral mucosa dry. No Gingival or Mucosal Lesions/ Ulcerations Neck: Supple, No JVD, Negative Carotid Bruits Lungs: Air entry diminished in bilateral lung bases. No crepitation/rhonchi Cardiovascular: Regular rate, Regular Rhythm, Normal S1, Normal S2, systolic murmur Abdomen: Bowel Sounds Present, Soft, Non Tender, Non-Distended : No renal angle tenderness. No suprapubic tenderness. Extremities: No edema, Capillary Refill Less than 3 Seconds Skin: No rashes, No breakdown Musculoskeletal: No Tenderness to Palpation of Joints or Extremities. Can raise both lower extremity for more than 5 seconds. Muscle strength 4+/5 at major joints of LEs Neurological: Patient grossly confused. No focal neurological deficit. NIH stroke scale of 5 noted at the time of admission ED mainly due to confusion not answering LOC question and mild to moderate aphasia Psych/Mental Status: Flat affect confused. Assessment & Plan Assessment/Plan (1) Hyperammonemia: (2) Encephalopathy: (3) Macrocytic anemia: PLAN: Plan This is 77-year-old female was admitted with chief complaint of altered mental status, confusion, disorientation, not following simple command and not answering basic questions. As per H&P, her lactulose dose was decreased because to avoid diarrhea on travel. Patient has history of Busby cirrhosis. Patient was found unresponsive and foaming at mouth. 1. Acute encephalopathy most probably due to toxic metabolic encephalopathy with history of Busby cirrhosis: Patient was evaluated by telemetry neurologist in ED. There was no focal deficit but some language aphasia. Found not candidate for tPA. Empirically 1 dose of Keppra was given in ED as high ammonia can lower threshold of seizure. Patient had CT brain which did not show acute abnormality. CTA head and neck shows moderate stenosis at ICA but no acute aneurysm or hemodynamically significant stenosis. CT also showed multilevel degenerative changes with severe spinal canal narrowing compressing the cord probably chronic features. Patient does not have cervical spine tenderness, weakness in upper and lower extremities and no acute neurological deficit. 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 I do not think chronic cord compression is the issue right now patient can follow with the spine surgeon. 2D echo shows EF 55%, diastolic dysfunction, mild MR and mild AI. Severely enlarged LE. Plan: SOC consulted. Lactulose ordered to have a goal of 3 BMs per day. IV fluid rehydration. Patient does not have fever therefore doubt infectious encephalopathy. Patient was loaded with 1 g IV Keppra in ED. Ativan as needed for seizure. EEG ordered. Hyperammonemia should not be interpreted as 1-1 cause?effect relationship for acute toxic metabolic encephalopathy 2. 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 Hold Lasix and Aldactone. Hyperlipidemia -Continue Lipitor once patient is more awake and able to take p.o. DM-2 -Sliding scale every 6 hours until p.o. intake is possible -Accu-Cheks -Hold metformin GERD -Continue PPI but convert to IV 40 mg daily Depression: DVT prophylaxis -Lovenox subcu daily -SCDs CODE STATUS -DNR CCA without intubation per discussion with her family prior to admission the emergency department Laboratory Results 05/05/22 23:13: POC Glucose 129 H 05/05/22 23:20: WBC 7.0, RBC 3.21 L, Hgb 10.9 L, Hct 33.2 L, MCV 103.4 H, MCH 34.0 H, MCHC 32.8, RDW Std Deviation 63.3 H, RDW Coeff of Saroj 16.6 H, Plt Count 155, MPV 9.7, Immature Gran % (Auto) 0.300, Neut % (Auto) 50.0, Lymph % (Auto) 35.1, [place] % (Auto) 11.1 H, Eos % (Auto) 3.2, Baso % (Auto) 0.3, Absolute Neuts (auto) 3.5, Absolute Lymphs (auto) 2.44, Nucleated RBC % 0 05/05/22 23:20: PT 14.1, INR 1.1, APTT 27.2 05/05/22 23:20: Sodium 141, Potassium 3.8, Chloride 104, Carbon Dioxide 30.0, Anion Gap 7, BUN 26 H, Creatinine 0.98, Estim Creat Clear Calc 42.07, Est GFR (MDRD) Af Amer 70, Est GFR (MDRD) Non-Af 58 L, BUN/Creatinine Ratio 26.4 H, Glucose 138 H, Calcium 10.4 H, Troponin I High Sens 28 05/05/22 23:20: Ammonia 84.0 H 05/06/22 02:59: POC Glucose 101 05/06/22 05:41: WBC 5.6, RBC 2.89 L, Hgb 9.9 L, Hct 29.7 L, MCV 102.8 H, MCH 34.3 H, MCHC 33.3, RDW Std Deviation 63.6 H, RDW Coeff of Saroj 16.7 H, Plt Count 134 L, MPV 10.0, Immature Gran % (Auto) 0.200, Neut % (Auto) 47.2, Lymph % (Auto) 37.7, [place] % (Auto) 10.4 H, Eos % (Auto) 3.8, Baso % (Auto) 0.7, Absolute Neuts (auto) 2.7, Absolute Lymphs (auto) 2.11, Nucleated RBC % 0 05/06/22 05:41: Sodium 142, Potassium 3.8, Chloride 107, Carbon Dioxide 26.0, Anion Gap 9, BUN 23 H, Creatinine 0.89, Estim Creat Clear Calc 44.10, Est GFR (MDRD) Af Amer 78, Est GFR (MDRD) Non-Af 65, BUN/Creatinine Ratio 25.7 H, Glucose 84, Calcium 10.1, Phosphorus 3.2, Magnesium 2.2, Total Bilirubin 1.00, AST 41 H, ALT 62 H, Alkaline Phosphatase 69, Total Protein 5.8 L, Albumin 2.9 L, Globulin 2.9, Albumin/Globulin Ratio 1.0, TSH 1.11 05/06/22 06:08: POC Glucose 73 L 05/06/22 13:18: POC Glucose 191 H Clinical Impression(s) from Imaging Studies Brain CT 05/05/22 23:01 IMPRESSION: No acute abnormality on noncontrast CT. CT angiogram and/or MRI may be helpful to evaluate for acute infarct as clinically indicated. Mild chronic microvascular ischemic disease. Chest X-Ray 05/05/22 23:01 IMPRESSION: Small left pleural effusion versus pleural thickening. Electronically Signed: Paula Parikh MD at 0:21 EDT , Head/Neck CTA 05/06/22 00:11 IMPRESSION: 1. Moderate stenosis in the bilateral proximal internal carotid arteries. 2. No aneurysm or dissection in the head and neck. 3. Multilevel degenerative changes with severe spinal canal narrowing compressing the cord. Findings are likely chronic, however if there are focal neurologic deficits consider further characterization with MRI of the cervical spine. Brain MRI 05/06/22 00:13 IMPRESSION: 1. Normal unenhanced MRI of the brain. 2. Suspicious pronounced central canal stenosis at C3-C4 and C5-C6 disc space levels. Echocardiogram 05/06/22 02:43 Interpretation Summary The left ventricular ejection fraction is 55 %. Diastolic function is indeterminate. The left atrium is severely enlarged. Mild (1+) mitral valve insufficiency. Aortic sclerosis, no stenosis. Mild (1+) pulmonic valve insufficiency. Small pericardial effusion. Cervical Spine MRI 05/06/22 07:25 IMPRESSION: 1. Limited study due to motion. 2. 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 Electronically Signed: Callum Wright MD at 12:58 EDT , ADDENDUM: 05/06/22 1331 IMPRESSION: 1. Limited study due to motion. 2. 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 N.B. : Callum Acharya RN, confirmed on 05/06/2022 13:24:08 (ET) that the healthcare facility has received the radiology report. Electronically Signed: Callum Wright MD at 12:58 EDT , Clinical Impression(s) from Imaging Studies Brain CT 05/05/22 23:01 IMPRESSION: No acute abnormality on noncontrast CT. CT angiogram and/or MRI may be helpful to evaluate for acute infarct as clinically indicated. Mild chronic microvascular ischemic disease. Electronically Signed: Paula Parikh MD at 23:19 EDT , ADDENDUM: 05/05/22 2327 IMPRESSION: No acute abnormality on noncontrast CT. CT angiogram and/or MRI may be helpful to evaluate for acute infarct as clinically indicated. Mild chronic microvascular ischemic disease. N.B. : The above Results were Read Back by Paula Parikh MD to jonnathan doran MD, and understanding confirmed on 05/05/2022 23:20:21 (ET). Electronically Signed: Paula Parikh MD at 23:19 EDT , Chest X-Ray 05/05/22 23:01 IMPRESSION: Small left pleural effusion versus pleural thickening. Electronically Signed: Paula Parikh MD at 0:21 EDT , Head/Neck CTA 05/06/22 00:11 IMPRESSION: 1. Moderate stenosis in the bilateral proximal internal carotid arteries. 2. No aneurysm or dissection in the head and neck. 3. Multilevel degenerative changes with severe spinal canal narrowing compressing the cord. Findings are likely chronic, however if there are focal neurologic deficits consider further characterization with MRI of the cervical spine. Charges/Coding Visit Charges OBSV E&M: 08767 Subsequent observation care L3
--- NOTE | 2022-05-06 07:25 | MRI_ITS ---
ACR Level 3 findings have been noted. An addendum which confirms receipt of the report will follow. STUDY: MRI CERVICAL SPINE WITHOUT CONTRAST REASON FOR EXAM: Female, 77 years old. Severe spinal stenosis compressing the spinal cord on CTA neck. TECHNIQUE: Standardized fat and water weighted pulse sequences were obtained in the sagittal and axial planes. COMPARISON: CTA neck 05/06/2022. FINDINGS: Normal foramen magnum and brainstem-cervical cord junction. Normal craniovertebral junction. Normal anterior atlantoaxial articulation. Normal odontoid process. Normal cervical lordosis. Normal vertebral bodies and posterior osseous elements. C2-3: Normal endplates. Normal disc height, signal and morphology. Normal central canal and intervertebral neural foramina. C3-4: Normal endplates. Mild disc space narrowing. Grade 1 degenerative anterolisthesis of C3 on C4. Markedly pronounced right degenerative facet arthropathy and moderate left degenerative facet arthropathy. No central canal stenosis with spinal cord compression. 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 Limited visualization of the intervertebral neural foramina due to motion. C4-5: Normal endplates. Minimal disc space narrowing. Mild degenerative anterolisthesis of C4 on C5. Normal central canal. Suboptimal visualization of the intervertebral neural foramina due to motion. Moderate bilateral degenerative facet arthropathy. C5-6: Pronounced disc space narrowing with anterior and posterior partial spurs. Mild central canal stenosis. Suboptimal visualization of the intervertebral neural foramina due to motion. C6-7: Partial ankylosis of the C6 and C7 vertebral bodies. Normal central canal. Normal intervertebral neural foramina. C7-T1: Normal endplates. Normal disc height, signal and morphology. Normal central canal and intervertebral neural foramina. T1-T2 and T2-T3: (Sagittal only). Normal place. Normal disc height and morphology. Normal central canal and intervertebral neural foramina. T3-T4: (Sagittal). Moderate disc space narrowing. Mild ventral extradural defect due to posterior marginal spurs and posterior bulging annulus. Normal central canal. Mild stenosis of the intervertebral foramina. T4-T5: (Sagittal only). Normal endplates. Pronounced disc space narrowing. Normal central canal and intervertebral neural foramina. Abnormal spinal cord compression at the C3-C4 disc space level with suspicious intramedullary high signal intensity. The cord is not expanded. 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 No other signal abnormalities of the remainder of the spinal cord. Normal included portions of the brainstem and cerebellum. Normal visualized soft tissue structures. MRI/Spine Cervical (Routine) IMPRESSION: 1. Limited study due to motion. 2. 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 Electronically Signed: Callum Wright MD at 12:58 EDT ,
--- NOTE | 2022-05-06 07:28 | TELEMED_ITS ---
[facility] Telemed has confirmed receipt of a request for visit. This document confirms receipt of the order initiating the consult. To find the results of the consultation, please view the patient's reports for the scanned Telemed Consult.
[2022-05-06] MEDS: Furosemide 20 MG/2 ML VIAL IV (08:35)
[2022-05-06] MEDS: Enoxaparin 40 MG/0.4 ML Syringe SC (08:35)
[2022-05-06] MEDS: Menthol/Lanolin/Calamine/Znox 113 GM Tube 1 APPLIC TOPICAL ×2 (08:42→21:52)
[2022-05-06] MEDS: Glucerna Shake 120 ML LIQUID PO ×3 (13:28→22:00)
[2022-05-06] MEDS: Insulin Lispro 100 UNIT/ML INSULN.PEN SC ×2 (13:28→17:48)
[2022-05-06 13:46] LABS: Bedside Glucose 191 mg/dL (74-106)
[2022-05-06 14:55] LABS: CPK Total, Creatine Kinase 27 U/L (26-192)
[2022-05-06] MEDS: Lactated Ringers 1,000 ML 75 ML IV (15:54)
[2022-05-06] MEDS: Lactulose 20 GM/30 ML UDC PO ×2 (15:56→21:58)
[2022-05-06] MEDS: predniSONE 10 MG Tablet PO (17:48)
[2022-05-06 18:06] LABS: Bedside Glucose 258 mg/dL (74-106)
[2022-05-06] MEDS: Metoprolol Tartrate 25 MG Tablet PO (22:30)
[2022-05-06 22:35] LABS: Bedside Glucose 119 mg/dL (74-106)
[2022-05-07] VITALS (7 sets, daily range): BP systolic 138–143; BP diastolic 58–69; PULSE 59–75; RESP 18; TEMP 36.6–36.7; O2SAT 92–95; BMI 20.3
[2022-05-07 05:02] LABS: Absolute Neutrophil Count 4.5 X10^3/uL (2.0-7.7); Basophil# 0.01 X10^3/uL; Basophil% 0.2 % (0-1); Eosinophil# 0.06 X10^3/uL; Eosinophils% 0.9 % (0-5); Hematocrit 29.4 % (37-47); Hemoglobin 9.8 g/dL (12.0-15.0); Lymphocyte % 21.5 % (19-41); Mean Corp Hgb Conc 33.3 g/dL (32-36); Mean Corpuscular Volume 102.1 fL (81-99); Monocyte# 0.49 X10^3/uL; Monocyte% 7.5 % (0-10); NRBC Flagged by Analyzer 0 % (0-5); Neutrophil # 4.54 X10^3/uL (2.7-7.7); Neutrophil % 69.6 % (47-70); Platelet Count 137 K/mm3 (150-450); RBC Distribution Width CV 16.1 % (11.6-14.6); RBC Distribution Width SD 60.7 fl (35.1-43.9); Red Blood Count 2.88 M/mm3 (4.2-5.4); White Blood Count 6.5 K/mm3 (4.4-11.0)
[2022-05-07] MEDS: Lactated Ringers 1,000 ML 75 ML IV (05:44)
[2022-05-07] MEDS: Lactulose 20 GM/30 ML UDC PO (05:45)
[2022-05-07 06:03] LABS: AST(SGOT) 42 U/L (15-37); Alanine Aminotransfer ALT/SGPT 64 U/L (13-56); Albumin, Serum 2.8 g/dL (3.2-5.0); Alkaline Phosphatase 72 U/L (45-117); Anion Gap 6 (5-15); BUN 20 mg/dL (7-18); BUN/Creat Ratio 22.8 RATIO (10-20); Bilirubin, Direct 0.29 mg/dL (0.00-0.30); Calcium,Total 9.8 mg/dL (8.5-10.1); Chloride 105 mmol/L (98-107); Creatinine, Serum 0.88 mg/dL (0.55-1.02); EST Glomerular Filtration Rate 66 mL/min (>60); Est Glom Filt Rate - Afr Amer 80 mL/min (>60); Estimated Creatinine Clearance 44.85 ml/min; Globulin 2.9 g/dL (2.2-4.2); Glucose 134 mg/dL (74-106); Potassium 4.2 mmol/L (3.5-5.1); Protein, Total 5.7 g/dL (6.4-8.2); Sodium Level 138 mmol/L (136-145)
[2022-05-07 07:20] LABS: Bedside Glucose 143 mg/dL (74-106)
[2022-05-07] MEDS: predniSONE 10 MG Tablet PO (08:33)
[2022-05-07] MEDS: Enoxaparin 40 MG/0.4 ML Syringe SC (09:39)
[2022-05-07] MEDS: Spironolactone 25 MG Tablet PO (09:39)
[2022-05-07] MEDS: Pantoprazole Sodium 40 MG Tablet PO (09:39)
[2022-05-07] MEDS: Glucerna Shake 120 ML LIQUID PO (09:44)
[2022-05-07] MEDS: Metoprolol Tartrate 25 MG Tablet PO (09:45)
[2022-05-07] MEDS: Menthol/Lanolin/Calamine/Znox 113 GM Tube 1 APPLIC TOPICAL (09:46)
--- NOTE | 2022-05-07 10:17 | CASEMGMT ---
This RN CM to room with FLOR form, explanation done w/ pt/family-voice understanding, and daughter signs FLOR form. Original to chart and copy to pt. Daughter states the plan is for pt to go home([place]) with her and her on discharge and daughter is aware to have pt f/u with PCP and that they can also order HHC or OP therapy for pt once home. Daughter voices no further questions/concerrns/needs for discharge. SStaten CHELSEA CM
--- NOTE | 2022-05-07 10:20 | PCM.DC ---
Discharge Instructions Diet Discharge Diet: 2000 mg Sodium Diet Activity Discharge Activity: Return to Normal Activity and May Not Drive Weight Bearing Status: Weight bearing as tolerated Dressing / Incision Call your doctor if you observe: Fever of 101 or Higher, Coldness, Increased Pain, Numbness or Tingling, Change in Color, Inability to urinate, Inability to have a bowel movement, Using more than 1 pad per hour, Shortness of breath, Dizziness, Fainting spells, Swelling in the ankles, Chest pain, Prolonged hiccupping, Increased palpitations (irregular heartbeat), Calf discomfort and Uncontrolled pain Follow Up Care Test Results: Test results from this visit will be discussed in further detail at your follow-up appointment, if applicable. Discharge Plan Admission Admit Date/Time: 05/06/22 00:08 Primary Reason for Your Visit: Acute toxic metabolic encephalopathy, decompensated cirrhosis Attending Provider: Faustino Atkinson Primary Care Provider: Rama De La Garza Consulting Providers: Monse Marquez Instructions Additional Instructions / Restrictions: Patient lives in [place] therefore follow-up with gastroenterology/production support consultant for decompensated cirrhosis Discharge Orders/Prescriptions Prescriptions: Continued atorvastatin 40 mg tablet 40 mg PO DAILY Label Comments: TAKE 1 TABLET BY MOUTH ONCE DAILY prednisone 10 mg tablet 10 mg PO BID Label Comments: TAKE 1 TABLET BY MOUTH TWICE DAILY citalopram 20 mg tablet 10 mg PO DAILY Label Comments: TAKE 1/2 (ONE-HALF) TABLET BY MOUTH ONCE DAILY pantoprazole 40 mg tablet,delayed release (DR/EC) 40 mg PO DAILY Label Comments: TAKE 1 TABLET BY MOUTH ONCE DAILY metformin 500 mg tablet extended release 24 hr 500 mg PO BID Label Comments: TAKE 1 TABLET BY MOUTH TWICE DAILY BEFORE MEAL(S) metoprolol tartrate 25 mg tablet 25 mg PO BID Label Comments: TAKE 1 TABLET BY MOUTH TWICE DAILY Changed lactulose 20 gram/30 mL Solution 20 ml PO TID Qty: 1200 0RF Rx Instructions: Goal of 2-3 soft bowel movements per day Held furosemide 40 mg tablet 40 mg PO DAILY Hold Instructions: Start from tomorrow, 05/09. Hold for dehydration Label Comments: TAKE 1/2 TO 1 (ONE-HALF TO ONE) TABLET BY MOUTH ONCE DAILY NEEDED spironolactone 25 mg tablet 25 mg PO DAILY Hold Instructions: Hold for 2 days and restart with furosemide Label Comments: TAKE 1 TABLET BY MOUTH ONCE DAILY Referrals / Follow Up: Rama De La Garza MD [Primary Care Provider] - Within 2 Weeks FriendShay DO [Med Staff - Active Staff] - Within 1 Month (For decompensated cirrhosis) Disposition Disposition (needs filled in before D/C Order can be placed): Home, Self Care
--- NOTE | 2022-05-07 11:20 | PCM.DC.SUM ---
Providers Date of Admission: 05/06/22 Date of Discharge: 05/07/22 Primary Care Physician: Dr. Rama De La Garza MD Reason For Visit: TOXIC/METABOLIC ENCEPHALOPATHY Diagnosis Discharge Diagnosis (1) Hyperammonemia: Status: Acute Code(s): E72.20 - Disorder of urea cycle metabolism, unspecified (2) Encephalopathy: Status: Acute Code(s): G93.40 - Encephalopathy, unspecified (3) Macrocytic anemia: Status: Acute Code(s): D53.9 - Nutritional anemia, unspecified Medications at Discharge Home Medications atorvastatin 40 mg tablet 40 mg PO DAILY cholesterol 05/05/22 citalopram 20 mg tablet 10 mg PO DAILY mental health 05/05/22 furosemide 40 mg tablet 40 mg PO DAILY diuretic 05/05/22 metformin 500 mg tablet,extended release 24 hr 500 mg PO BID diabetes 05/05/22 metoprolol tartrate 25 mg tablet 25 mg PO BID blood pressure 05/05/22 pantoprazole 40 mg tablet,delayed release 40 mg PO DAILY reflux 05/05/22 prednisone 10 mg tablet 10 mg PO BID inflammation 05/05/22 spironolactone 25 mg tablet 25 mg PO DAILY diuretic 05/05/22 lactulose 20 gram/30 mL oral solution 20 ml PO TID #1,200 mL 05/07/22 Hospital Course Summary of Care Provided Hospital Course: This is 77-year-old female was admitted with chief complaint of altered mental status, confusion, disorientation, not following simple command and not answering basic questions. As per H&P, her lactulose dose was decreased because to avoid diarrhea on travel. Patient has history of Busby cirrhosis. Patient was found unresponsive and foaming at mouth. 1. Acute encephalopathy most probably due to toxic metabolic encephalopathy with history of Bus[place] cirrhosis: Patient was evaluated by tele neurologist, [facility] in ED. There was no focal deficit but some language aphasia. Found not candidate for tPA. Empirically 1 dose of Keppra was given in ED as high ammonia can lower threshold of seizure. Patient had CT brain which did not show acute abnormality. CTA head and neck shows moderate stenosis at ICA but no acute aneurysm or hemodynamically significant stenosis. CT also showed multilevel degenerative changes with severe spinal canal narrowing compressing the cord probably chronic features. Patient does not have cervical spine tenderness, weakness in upper and lower extremities and no acute neurological deficit. 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 I do not think chronic cord compression is the issue right now patient can follow with the spine surgeon. 2D echo shows EF 55%, diastolic dysfunction, mild MR and mild AI. Severely enlarged LE. 05/07: I talked to the patient's daughter, brother and other family member on 05/06 and today and went over the course of cirrhosis, encephalopathy in the complications of cirrhosis. She states in [place] for 6 months and in [place] for 6-month with other daughter. I went in detail both days about the education of lactulose and Xifaxan. She should follow-up with [facility]. EEG done and reported severe generalized background slowing suggestive of metabolic toxic or other forms of encephalopathy. No seizure focal or lateralized epileptiform discharges noticed. Acute encephalopathy resolved Plan: Lactulose ordered to have a goal of 3 BMs per day. IV fluid rehydration. Patient does not have fever therefore doubt infectious encephalopathy. Patient was loaded with 1 g IV Keppra in ED. Ativan as needed for seizure. EEG ordered. Hyperammonemia should not be interpreted as 1-1 cause?effect relationship for acute toxic metabolic encephalopathy 2. 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 05/07: As patient was dehydrated and advised hold diuretics and resume on 05/09. Hyperlipidemia -Continue Lipitor once patient is more awake and able to take p.o. DM-2 -Sliding scale every 6 hours until p.o. intake is possible. Accu-Cheks usually between 140-180 mg/dL barring few Accu-Cheks Metformin resumed GERD -Continue PPI Depression: DVT prophylaxis -Lovenox subcu daily -SCDs CODE STATUS -DNR CCA without intubation per discussion with her family prior to admission the emergency department Discharge medication reconciliation done. Discharge follow-up instructions completed. Discharge process discussed with the patient and all questions were answered to patient's satisfaction. Total time spent, exact 35 minutes on discharge meds reconciliation, examination, coordination of care with nurses and ancillary staff, review of imaging and blood test and discussion with the patient on follow-up instructions. Laboratory Results 05/06/22 05:41: Total Creatine Kinase 27 05/06/22 17:43: POC Glucose 258 H 05/06/22 21:48: POC Glucose 119 H 05/07/22 04:21: WBC 6.5, RBC 2.88 L, Hgb 9.8 L, Hct 29.4 L, MCV 102.1 H, MCH 34.0 H, MCHC 33.3, RDW Std Deviation 60.7 H, RDW Coeff of Saroj 16.1 H, Plt Count 137 L, MPV 10.0, Immature Gran % (Auto) 0.300, Neut % (Auto) 69.6, Lymph % (Auto) 21.5, [place] % (Auto) 7.5, Eos % (Auto) 0.9, Baso % (Auto) 0.2, Absolute Neuts (auto) 4.5, Absolute Lymphs (auto) 1.40, Nucleated RBC % 0 05/07/22 04:21: Sodium 138, Potassium 4.2, Chloride 105, Carbon Dioxide 27.0, Anion Gap 6, BUN 20 H, Creatinine 0.88, Estim Creat Clear Calc 44.85, Est GFR (MDRD) Af Amer 80, Est GFR (MDRD) Non-Af 66, BUN/Creatinine Ratio 22.8 H, Glucose 134 H, Calcium 9.8, Total Bilirubin 1.00, Direct Bilirubin 0.29, AST 42 H, ALT 64 H, Alkaline Phosphatase 72, Total Protein 5.7 L, Albumin 2.8 L, Globulin 2.9 05/07/22 07:03: POC Glucose 143 H 05/07/22 11:24: POC Glucose 178 H Clinical Impression(s) from Imaging Studies Brain CT 05/05/22 23:01 IMPRESSION: No acute abnormality on noncontrast CT. CT angiogram and/or MRI may be helpful to evaluate for acute infarct as clinically indicated. Mild chronic microvascular ischemic disease. Chest X-Ray 05/05/22 23:01 IMPRESSION: Small left pleural effusion versus pleural thickening. Electronically Signed: Paula Parikh MD at 0:21 EDT , Head/Neck CTA 05/06/22 00:11 IMPRESSION: 1. Moderate stenosis in the bilateral proximal internal carotid arteries. 2. No aneurysm or dissection in the head and neck. 3. Multilevel degenerative changes with severe spinal canal narrowing compressing the cord. Findings are likely chronic, however if there are focal neurologic deficits consider further characterization with MRI of the cervical spine. Brain MRI 05/06/22 00:13 IMPRESSION: 1. Normal unenhanced MRI of the brain. 2. Suspicious pronounced central canal stenosis at C3-C4 and C5-C6 disc space levels. Echocardiogram 05/06/22 02:43 Interpretation Summary The left ventricular ejection fraction is 55 %. Diastolic function is indeterminate. The left atrium is severely enlarged. Mild (1+) mitral valve insufficiency. Aortic sclerosis, no stenosis. Mild (1+) pulmonic valve insufficiency. Small pericardial effusion. Cervical Spine MRI 05/06/22 07:25 IMPRESSION: 1. Limited study due to motion. 2. 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 Electronically Signed: Callum Wright MD at 12:58 EDT , ADDENDUM: 05/06/22 1331 IMPRESSION: 1. Limited study due to motion. 2. 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 N.B. : Callum Acharya RN, confirmed on 05/06/2022 13:24:08 (ET) that the healthcare facility has received the radiology report. Electronically Signed: Callum Wright MD at 12:58 EDT , Clinical Impression(s) from Imaging Studies Brain CT 05/05/22 23:01 IMPRESSION: No acute abnormality on noncontrast CT. CT angiogram and/or MRI may be helpful to evaluate for acute infarct as clinically indicated. Mild chronic microvascular ischemic disease. Electronically Signed: Paula Parikh MD at 23:19 EDT , ADDENDUM: 05/05/22 [id number] IMPRESSION: No acute abnormality on noncontrast CT. CT angiogram and/or MRI may be helpful to evaluate for acute infarct as clinically indicated. Mild chronic microvascular ischemic disease. N.B. : The above Results were Read Back by Paula Parikh MD to jonnathan doran MD, and understanding confirmed on 05/05/2022 23:20:21 (ET). Electronically Signed: Paula Parikh MD at 23:19 EDT , Chest X-Ray 05/05/22 23:01 IMPRESSION: Small left pleural effusion versus pleural thickening. Electronically Signed: Paula Parikh MD at 0:21 EDT , Head/Neck CTA 05/06/22 00:11 IMPRESSION: 1. Moderate stenosis in the bilateral proximal internal carotid arteries. 2. No aneurysm or dissection in the head and neck. 3. Multilevel degenerative changes with severe spinal canal narrowing compressing the cord. Findings are likely chronic, however if there are focal neurologic deficits consider further characterization with MRI of the cervical spine. Physical Exam Narrative Seen and examined on the day of discharge. Patient alert awake oriented x4. Patient answered simple orientation questions and followed simple commands. Acute encephalopathy resolved. Physical exam General: Confused, disoriented x4. HEENT: No C-spine tenderness. Atraumatic, PERRLA, EOMI, Normocephalic Oral: Oral mucosa dry. No Gingival or Mucosal Lesions/ Ulcerations Neck: Supple, No JVD, Negative Carotid Bruits Lungs: Air entry diminished in bilateral lung bases. No crepitation/rhonchi Cardiovascular: Regular rate, Regular Rhythm, Normal S1, Normal S2, systolic murmur Abdomen: Bowel Sounds Present, Soft, Non Tender, Non-Distended : No renal angle tenderness. No suprapubic tenderness. Extremities: No edema, Capillary Refill Less than 3 Seconds Skin: No rashes, No breakdown Musculoskeletal: No Tenderness to Palpation of Joints or Extremities. Can raise both lower extremity for more than 5 seconds. Muscle strength 4+/5 at major joints of LEs Neurological: No focal neurological deficit. On baseline Psych/Mental Status: Flat affect. Weight / BMI Weight Weight: 120 lb 13.013 oz Body Mass Index (BMI) 20.3 ABG / Lab / Microbiology Data Result Diagrams: 05/07/22 04:21 05/07/22 04:21 Laboratory: Laboratory Results - last 24 hr 05/06/22 05:41: Total Creatine Kinase 27 05/06/22 13:18: POC Glucose 191 H 05/06/22 17:43: POC Glucose 258 H 05/06/22 21:48: POC Glucose 119 H 05/07/22 04:21: WBC 6.5, RBC 2.88 L, Hgb 9.8 L, Hct 29.4 L, MCV 102.1 H, MCH 34.0 H, MCHC 33.3, RDW Std Deviation 60.7 H, RDW Coeff of Saroj 16.1 H, Plt Count 137 L, MPV 10.0, Immature Gran % (Auto) 0.300, Neut % (Auto) 69.6, Lymph % (Auto) 21.5, [place] % (Auto) 7.5, Eos % (Auto) 0.9, Baso % (Auto) 0.2, Absolute Neuts (auto) 4.5, Absolute Lymphs (auto) 1.40, Nucleated RBC % 0 05/07/22 04:21: Sodium 138, Potassium 4.2, Chloride 105, Carbon Dioxide 27.0, Anion Gap 6, BUN 20 H, Creatinine 0.88, Estim Creat Clear Calc 44.85, Est GFR (MDRD) Af Amer 80, Est GFR (MDRD) Non-Af 66, BUN/Creatinine Ratio 22.8 H, Glucose 134 H, Calcium 9.8, Total Bilirubin 1.00, Direct Bilirubin 0.29, AST 42 H, ALT 64 H, Alkaline Phosphatase 72, Total Protein 5.7 L, Albumin 2.8 L, Globulin 2.9 05/07/22 07:03: POC Glucose 143 H Radiography Diagnostic Testing: Radiology Impression Brain MRI 05/06/22 00:13 IMPRESSION: 1. Normal unenhanced MRI of the brain. 2. Suspicious pronounced central canal stenosis at C3-C4 and C5-C6 disc space levels. Electronically Signed: Callum Wright MD at 12:47 EDT , Cervical Spine MRI 05/06/22 07:25 IMPRESSION: 1. Limited study due to motion. 2. 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 Electronically Signed: Callum Wright MD at 12:58 EDT , ADDENDUM: 05/06/22 1331 IMPRESSION: 1. Limited study due to motion. 2. 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 N.B. : Callum Acharya RN, confirmed on 05/06/2022 13:24:08 (ET) that the healthcare facility has received the radiology report. Electronically Signed: Callum Wright MD at 12:58 EDT , Meaningful Use Info Meaningful Use Diagnoses (Choose all that apply): None applicable Discharge Plan Admission Admit Date/Time: 05/06/22 00:08 Primary Reason for Your Visit: Acute toxic metabolic encephalopathy, decompensated cirrhosis Attending Provider: Faustino Atkinson Primary Care Provider: Rama De La Garza Consulting Providers: Monse Marquez Instructions Additional Instructions / Restrictions: Patient lives in [place] therefore follow-up with [facility] for decompensated cirrhosis Discharge Orders/Prescriptions Prescriptions: Continued atorvastatin 40 mg tablet 40 mg PO DAILY Label Comments: TAKE 1 TABLET BY MOUTH ONCE DAILY prednisone 10 mg tablet 10 mg PO BID Label Comments: TAKE 1 TABLET BY MOUTH TWICE DAILY citalopram 20 mg tablet 10 mg PO DAILY Label Comments: TAKE 1/2 (ONE-HALF) TABLET BY MOUTH ONCE DAILY pantoprazole 40 mg tablet,delayed release (DR/EC) 40 mg PO DAILY Label Comments: TAKE 1 TABLET BY MOUTH ONCE DAILY metformin 500 mg tablet extended release 24 hr 500 mg PO BID Label Comments: TAKE 1 TABLET BY MOUTH TWICE DAILY BEFORE MEAL(S) metoprolol tartrate 25 mg tablet 25 mg PO BID Label Comments: TAKE 1 TABLET BY MOUTH TWICE DAILY Changed lactulose 20 gram/30 mL Solution 20 ml PO TID Qty: 1200 0RF Rx Instructions: Goal of 2-3 soft bowel movements per day Held furosemide 40 mg tablet 40 mg PO DAILY Hold Instructions: Start from tomorrow, 05/09. Hold for dehydration Label Comments: TAKE 1/2 TO 1 (ONE-HALF TO ONE) TABLET BY MOUTH ONCE DAILY NEEDED spironolactone 25 mg tablet 25 mg PO DAILY Hold Instructions: Hold for 2 days and restart with furosemide Label Comments: TAKE 1 TABLET BY MOUTH ONCE DAILY Referrals / Follow Up: Rama De La Garza MD [Primary Care Provider] - Within 2 Weeks Shay Palacio DO [Med Staff - Active Staff] - Within 1 Month (For decompensated cirrhosis) Disposition Disposition (needs filled in before D/C Order can be placed): Home, Self Care Charges/Coding Visit Charges Inpatient E&M: 64524 [facility]
[2022-05-07] MEDS: Insulin Lispro 100 UNIT/ML INSULN.PEN SC (11:43)
[2022-05-07 11:46] LABS: Bedside Glucose 178 mg/dL (74-106)
== END 2022-05-07 11:34 | disposition home or self-care (01) ==
LOC: ED 05-06 00:03 → PCU 05-06 00:27
PROVIDERS: Admitting Provider Internal Medicine; Emergency Provider Emergency Medicine; PCP Internal Medicine; Visit Provider Internal Medicine
DX: E72.20 Disorder of urea cycle metabolism, unspecified (principal); K74.60 Unspecified cirrhosis of liver; E11.9 Type 2 diabetes mellitus without complications; G93.40 Encephalopathy, unspecified; K75.81 Nonalcoholic steatohepatitis (NASH); I10 Essential (primary) hypertension; E78.5 Hyperlipidemia, unspecified; Z87.891 Personal history of nicotine dependence; D53.9 Nutritional anemia, unspecified; Z79.899 Other long term (current) drug therapy; Z79.84 Long term (current) use of oral hypoglycemic drugs; Z66 Do not resuscitate
CPT/HCPCS: 36415; 70450; 70496; 70498; 70551; 71045; 72141; 80048; 80053; 80076; 82140; 82550; 82962; 83735; 84100; 84443; 84484; 85025; 85610; 85730; 92610; 93005; 93306; 95819; 96361; 96365; 96372; 96375; 96376; 97162; 97166; 97802; 99218; 99251; 99285; J7120; Q9967; A4216; G0378; G0463; J1940